=== PATIENT | male | born 1950 | race Caucasian/White ===

== ENCOUNTER 2016-03-13 05:43 | Emergency (ER) ==
[2016-03-13] MEDS ORDERED: ASPIRIN PO STA (05:59)
--- NOTE | 2016-03-13 06:05 | EKG Report ---
Test Performed on : 03/13/2016 05:49:41 AM Test Reason : CP Blood Pressure : / mmHG Vent. Rate : 098 BPM Atrial Rate : 098 BPM P-R Int : 188 ms QRS Dur : 074 ms QT Int : 332 ms P-R-T Axes : 039 019 036 degrees QTc Int : 423 ms Normal sinus rhythm. Normal ECG No previous ECGs available Unconfirmed Result
[2016-03-13 06:09] LABS: MANUAL DIFF NEEDED? NO
[2016-03-13 06:13] LABS: BASO% 0.5 % (0.0-0.8); EOS# 0.41 X1000 (0.0-0.7); EOS% 6.2 % (0.0-10.0); HEMATOCRIT 46.6 % (42.0-52.0); HEMOGLOBIN 16.3 g/dL (14.0-18.0); IMM GRAN# 0.01 X1000 (0.0-0.04); IMM GRAN% 0.2 % (0.0-0.5); LYMPH# 1.96 X1000 (1.2-3.4); LYMPH% 29.5 % (20.5-51.1); MCH 32.1 PG (27-31); MCV 91.7 FL (81-99); MPV 10.7 FL (7.4-10.4); NEUT% 51.6 % (42.2-75.2); PLT 179 X1000 (130-400); RBC 5.08 XMIL (4.7-6.1)
[2016-03-13 06:45] LABS: AGAP 11; ALBUMIN 4.5 g/dL (3.5-5.0); ALKALINE PHOSPHATASE 118 U/L (32-122); BUN 13 mg/dL (8-22); CALCIUM 9.7 mg/dL (8.8-10.2); CHLORIDE 101 mmol/L (98-107); CK PROFILE 172 U/L (24-204); COSMO 277; GOT 30 U/L (10-34); GPT 44 U/L (10-44); POTASSIUM 3.7 mmol/L (3.5-5.1); SODIUM 138 mmol/L (136-145); TCO2 26 mmol/L (25-35); TOTAL PROTEIN 7.7 g/dL (6.3-8.3)
[2016-03-13] MEDS ORDERED: SODIUM CHLORIDE 0.9% INJ ONE (06:48)
[2016-03-13] MEDS ORDERED: PROTONIX IV ONE (06:48)
[2016-03-13] MEDS ORDERED: G.I. COCKTAIL PO ONE (06:49)
--- NOTE | 2016-03-13 06:55 | PROVIDER DOCUMENTATION ---
HPI-Chest Pain - General Chief Complaint: Chest Pain Stated Complaint: CHEST PAIN Time Seen by Provider: 03/13/16 06:12 Source: patient, family Allergies/Adverse Reactions: Patient Allergies Allergy/AdvReac Type Severity Reaction Status Date / Time No Known Allergies Allergy Verified 03/13/16 05:55 Home Medications: Clonazepam [Klonopin] 1 mg PO HS 03/13/16 Meloxicam 15 mg PO DAILY 03/13/16 Omeprazole 40 mg PO DAILY 03/13/16 Tramadol [Ultram] 50 mg PO BID 03/13/16 - History of Present Illness-CP Nature of Presenting Problem: Reports R upper back/RUQ and epigastric pain and R shoulder area pain off and on since 10 days ago after laying some concrete blocks and doing heavy lifting. Denies cardiac history and no cardiac work up done in the past. Drinks 6 packs per day. Denies major health issues in the past. Reports he had stabbing pain at epigastric area when he woke up this morning and this is the reason for him to be seen at ER. Location: reports: epigastric, shoulder, back, other (See above) Chest Pain Radiation: reports: no radiation Quality of Pain: reports: aching, pressure, sharp Severity in ED: moderate Onset/Duration: other (10 days) Timing: still present, improving Context/Activities at Onset: reports: none Modifying Factors: improves with: nothing Associated Symptoms: reports: denies symptoms Aspirin Treatment Today: 325 mg x 1 Prior Chest Pain/Cardiac Workup: reports: no prior chest pain Similar Symptoms Previously?: No Recently Seen Here or By Another Healthcare Provider: No Review of Systems - Adult - REVIEW OF SYSTEMS - ADULT Constitutional: reports: no symptoms reported. denies: fever, fatique, weight gain Eyes: reports: no symptoms reported Ears, Nose, Mouth & Throat: reports: no symptoms reported Cardiovascular: reports: see HPI, chest pain Respiratory: reports: no symptoms reported Gastrointestinal: reports: see HPI, abdominal pain Genitourinary: reports: no symptoms reported Musculoskeletal: reports: no symptoms reported Integumentary: reports: no symptoms reported Neurological: reports: no symptoms reported Psychiatric: reports: no symptoms reported Endocrine: reports: no symptoms reported All Other Systems: Reviewed and Negative Physical Exam-General - PHYSICAL EXAM-ADULT Initial Vital Signs Reviewed: Yes - CONSTITUTIONAL General Appearance: appears well, alert, no apparent distress - EYES Eyes: PERRL/EOMI, pink conjunctivae - HEAD, EARS, NOSE, MOUTH & THROAT HENMT: normocephalic/atraumatic, moist mucous membranes, normal ENT inspection - NECK Neck: non-tender, full range of motion, supple - RESPIRATORY Respiratory: chest non-tender, lungs clear, normal breath sounds, no pleuratic chest pain, no respiratory distress, no accessory muscle use - CARDIOVASCULAR Cardiovascular: normal peripheral pulses, regular rate, rhythm, no edema, no gallop - GASTROINTESTINAL (ABDOMEN) Abdominal Exam: normal bowel sounds, soft, no organomegaly, tenderness (Mild epigastric area tenderness, no guarding and no rebound.) - MUSCULOSKELETAL Back Exam: normal inspection, no CVA tenderness, no vertebral tenderness Extremity: normal range of motion, non-tender, normal gait - SKIN Integumentary: normal color, normal turgor, warm/dry - NEUROLOGIC Neurologic: grossly normal, no motor/sensory deficits - PSYCHIATRIC Psych/Mental Status: normal mood/affect, normal thought content, normal thought process, oriented x 3 Progress - PLAN OF CARE/RESULTS Progress/Plan/Lab Results: Laboratory Results - last 24 hr 03/13/16 03/13/16 03/13/16 05:55 05:55 05:55 WBC RBC Hgb Hct MCV MCH MCHC RDW Std Deviation Plt Count MPV Immature Gran % (Auto) Neut % (Auto) Lymph % (Auto) Coffee % (Auto) Eos % (Auto) Baso % (Auto) Immature Gran # (Auto) Neut # (Auto) Lymph # (Auto) Coffee # (Auto) Eos # (Auto) Baso # (Auto) PT INR APTT (Factor Assay) D-Dimer Sodium 138 Potassium 3.7 Chloride 101 Carbon Dioxide 26 Anion Gap 11 BUN 13 Creatinine 0.8 Estimated GFR/1.73 m2 > 60 BUN/Creatinine Ratio 16 Glucose 128 H Calculated Osmolality 277 Calcium 9.7 Magnesium 2.0 Total Bilirubin 0.70 AST 30 ALT 44 Alkaline Phosphatase 118 Creatine Kinase 172 Troponin T < 0.010 Izn-G-Pltwawukeoe Pept 33 Total Protein 7.7 Albumin 4.5 Globulin 3.0 Albumin/Globulin Ratio 1.0 Lipase 03/13/16 03/13/16 03/13/16 05:55 05:55 06:00 WBC 6.65 RBC 5.08 Hgb 16.3 Hct 46.6 MCV 91.7 MCH 32.1 H MCHC 35.0 RDW Std Deviation 12.7 Plt Count 179 MPV 10.7 H Immature Gran % (Auto) 0.2 Neut % (Auto) 51.6 Lymph % (Auto) 29.5 Coffee % (Auto) 12.0 H Eos % (Auto) 6.2 Baso % (Auto) 0.5 Immature Gran # (Auto) 0.01 Neut # (Auto) 3.44 Lymph # (Auto) 1.96 Coffee # (Auto) 0.80 H Eos # (Auto) 0.41 Baso # (Auto) 0.03 PT 14.0 INR 1.05 APTT (Factor Assay) 25.2 D-Dimer 0.37 Sodium Potassium Chloride Carbon Dioxide Anion Gap BUN Creatinine Estimated GFR/1.73 m2 BUN/Creatinine Ratio Glucose Calculated Osmolality Calcium Magnesium Total Bilirubin AST ALT Alkaline Phosphatase Creatine Kinase Troponin T Xva-D-Oyqxtuaemdu Pept Total Protein Albumin Globulin Albumin/Globulin Ratio Lipase 23 03/13/16 03/13/16 07:22 07:22 WBC RBC Hgb Hct MCV MCH MCHC RDW Std Deviation Plt Count MPV Immature Gran % (Auto) Neut % (Auto) Lymph % (Auto) Coffee % (Auto) Eos % (Auto) Baso % (Auto) Immature Gran # (Auto) Neut # (Auto) Lymph # (Auto) Coffee # (Auto) Eos # (Auto) Baso # (Auto) PT INR APTT (Factor Assay) D-Dimer Sodium Potassium Chloride Carbon Dioxide Anion Gap BUN Creatinine Estimated GFR/1.73 m2 BUN/Creatinine Ratio Glucose Calculated Osmolality Calcium Magnesium Total Bilirubin AST ALT Alkaline Phosphatase Creatine Kinase 150 Troponin T < 0.010 Cxg-[id number]-Xcrvpbcsdmw Pept Total Protein Albumin Globulin Albumin/Globulin Ratio Lipase Orders Category Date Time Status Cardiac Monitoring DIRECTED Care 03/13/16 06:00 Active Oxygen Therapy- ED Nursing DIRECTED Care 03/13/16 06:00 Active Saline Loc NOW Care 03/13/16 06:00 Active CHEST-2 VIEWS [RAD] Stat Exams 03/13/16 06:[address] ABD/PELVIS W/ IV CONT ONLY [CT] Stat Exams 03/13/16 07:08 Draft CBC WITH ELECTRONIC DIFF [HEME] Stat Lab 03/13/16 05:55 Completed CK PROFILE [SP CHEM] Stat Lab 03/13/16 05:55 Completed CK PROFILE [SP CHEM] Stat Lab 03/13/16 07:22 Completed COMPREHENSIVE METABOLIC PANEL [CHEM] Stat Lab 03/13/16 05:55 Com[address] D-DIMER PL [COAG] Stat Lab 03/13/16 05:55 Completed LIPASE [CHEM] Stat Lab 03/13/16 06:00 Completed MAGNESIUM [CHEM] Stat Lab 03/13/16 05:55 Completed PRO B-NATRIURETIC PEPTIDE Stat Lab 03/13/16 05:[address]IME WITH INR PL [COAG] Stat Lab 03/13/16 05:[address] [COAG] Stat Lab 03/13/16 05:55 Completed TROPONIN T Stat Lab 03/13/16 05:55 Completed TROPONIN T Stat Lab 03/13/16 07:22 Completed Aspirin Med 03/13/16 05:59 Discontinued 325 mg PO STAT STA Lido/Wade Alk/Al&mg Hydrox [G.i. Cocktail] Med 03/13/16 06:49 Discontinued 30 ml PO NOW ONE Pantoprazole [Protonix] Med 03/13/16 06:48 Discontinued 40 mg IV NOW ONE Sodium Chloride 0.9% Med 03/13/16 06:48 Discontinued 10 ml INJ NOW ONE EKG [EKG] Stat Ther 03/13/16 06:00 Draft Vital Signs Temp Pulse Resp BP Pulse Ox 03/13/16 08:00 85 18 132/90 95 03/13/16 07:45 141/93 03/13/16 07:15 84 15 145/92 97 03/13/16 07:00 84 20 137/94 96 03/13/16 05:48 98.8 F 96 H 12 159/106 96 No Known Allergies Allergy (Verified 03/13/16 05:55) Clonazepam [Klonopin] 1 mg PO HS 03/13/16 Meloxicam 15 mg PO DAILY 03/13/16 Omeprazole 40 mg PO DAILY 03/13/16 Tramadol [Ultram] 50 mg PO BID 03/13/16 Laboratory 03/13/16 03/13/16 03/13/16 07:22 07:22 06:00 WBC RBC Hgb Hct MCV MCH MCHC RDW Std Deviation Plt Count MPV Immature Gran % (Auto) Neut % (Auto) Lymph % (Auto) Coffee % (Auto) Eos % (Auto) Baso % (Auto) Immature Gran # (Auto) Neut # (Auto) Lymph # (Auto) Coffee # (Auto) Eos # (Auto) Baso # (Auto) PT INR APTT (Factor Assay) D-Dimer Sodium Potassium Chloride Carbon Dioxide Anion Gap BUN Creatinine Estimated GFR/1.73 m2 BUN/Creatinine Ratio Glucose Calculated Osmolality Calcium Magnesium Total Bilirubin AST ALT Alkaline Phosphatase Creatine Kinase 150 Troponin T < 0.010 Mhq-E-Jihoqvibksf Pept Total Protein Albumin Globulin Albumin/Globulin Ratio Lipase 23 03/13/16 03/13/16 03/13/16 05:55 05:55 05:55 WBC 6.65 RBC 5.08 Hgb 16.3 Hct 46.6 MCV 91.7 MCH 32.1 H MCHC 35.0 RDW Std Deviation 12.7 Plt Count 179 MPV 10.7 H Immature Gran % (Auto) 0.2 Neut % (Auto) 51.6 Lymph % (Auto) 29.5 Coffee % (Auto) 12.0 H Eos % (Auto) 6.2 Baso % (Auto) 0.5 Immature Gran # (Auto) 0.01 Neut # (Auto) 3.44 Lymph # (Auto) 1.96 Coffee # (Auto) 0.80 H Eos # (Auto) 0.41 Baso # (Auto) 0.03 PT 14.0 INR 1.05 APTT (Factor Assay) 25.2 D-Dimer 0.37 Sodium Potassium Chloride Carbon Dioxide Anion Gap BUN Creatinine Estimated GFR/1.73 m2 BUN/Creatinine Ratio Glucose Calculated Osmolality Calcium Magnesium Total Bilirubin AST ALT Alkaline Phosphatase Creatine Kinase Troponin T Wdy-N-Yzlyrxyyiox Pept 33 Total Protein Albumin Globulin Albumin/Globulin Ratio Lipase 03/13/16 03/13/16 05:55 05:55 WBC RBC Hgb Hct MCV MCH MCHC RDW Std Deviation Plt Count MPV Immature Gran % (Auto) Neut % (Auto) Lymph % (Auto) Coffee % (Auto) Eos % (Auto) Baso % (Auto) Immature Gran # (Auto) Neut # (Auto) Lymph # (Auto) Coffee # (Auto) Eos # (Auto) Baso # (Auto) PT INR APTT (Factor Assay) D-Dimer Sodium 138 Potassium 3.7 Chloride 101 Carbon Dioxide 26 Anion Gap 11 BUN 13 Creatinine 0.8 Estimated GFR/1.73 m2 > 60 BUN/Creatinine Ratio 16 Glucose 128 H Calculated Osmolality 277 Calcium 9.7 Magnesium 2.0 Total Bilirubin 0.70 AST 30 ALT 44 Alkaline Phosphatase 118 Creatine Kinase 172 Troponin T < 0.010 Hcv-Q-Jovmizrprds Pept Total Protein 7.7 Albumin 4.5 Globulin 3.0 Albumin/Globulin Ratio 1.0 Lipase - REASSESSMENT Reassessment #1 Time Reassessed: 08:16 Status: improving (Pt is doing better and pain free. Agrees to go home and f/u with PCP) - CT/MRI 1 CT Study: Renal Stone Impression: Normal Departure - Departure Time of Disposition Order: 08:17 DIAGNOSIS: Atypical chest pain Abdominal pain Qualifiers: Abdominal location: upper abdomen, unspecified Qualified Code(s): R10.10 - Upper abdominal pain, unspecified Disposition: HOME 01 Certified Medical Emergency: Emergent Condition: Stable Additional Instructions: Follow up with regular MD ALONA for further management as indicated. Return to ER if your pain comes back. Prescriptions: Hydrocodone/APAP 5 mg/325 mg [Apollo-5] 1 each PO Q8H PRN PRN #10 tablet PRN Reason: Pain
[2016-03-13 07:01] LABS: INR 1.05 (0.86-1.15)
[2016-03-13 07:43] LABS: PTT PL 25.2 Seconds (22.6-43.9)
--- NOTE | 2016-03-13 07:58 | Diag Imaging Result Document ---
PROCEDURE NAME: CHEST-2 VIEWS - 03/13/2016 CHEST X-RAY 2 VIEWS, 03/13/2016: COMPARISON: None. FINDINGS: The lungs are normally expanded and clear. Heart size and mediastinal contours are normal. No pneumothorax or pleural effusion. IMPRESSION: Negative exam.
[2016-03-13 08:08] VITALS: BP 132/90
--- NOTE | 2016-03-13 08:09 | Diag Imaging Result Document ---
PROCEDURE NAME: CT ABD/PELVIS W/ IV CONT ONLY - 03/13/2016 CT ABDOMEN AND PELVIS WITH INTRAVENOUS CONTRAST: COMPARISON: None. FINDINGS: The lung bases are clear. Heart size is normal with no pericardial effusion. There are peripelvic cysts of the left kidney. The liver, gallbladder, spleen, pancreas, and adrenals are normal. The stomach and small and large bowel are unremarkable. No bowel obstruction or inflammation. Urinary bladder, prostate, and rectum are normal. There is some calcified vascular disease of the aorta. There is advanced multilevel spondylosis throughout the thoracolumbar spine. No acute bony lesions. IMPRESSION: No acute disease.
== END 2016-03-13 08:47 | disposition home or self-care (01) ==
LOC: P.ED 05:43
DX: R07.89 Other chest pain (principal); R10.11 Right upper quadrant pain; M54.6 Pain in thoracic spine; R10.13 Epigastric pain; M25.511 Pain in right shoulder; R10.816 Epigastric abdominal tenderness; Z79.899 Other long term (current) drug therapy; X58.XXXA Exposure to other specified factors, initial encounter
CPT/HCPCS: 71020; 74177; 80053; 82550; 83690; 83735; 83880; 84484; 85025; 85379; 85610; 85730; 93005; 96374; C9113; Q9967; S0164